=== PATIENT | female | born 1960 | race Caucasian/White ===

== ENCOUNTER → 2017-04-17 | Outpatient (CLI) | payer OTHER | LOC: FIMAGING 09:38 | PROVIDERS: ATTEND Obstetrics & Gynecology | DX: N83.02 Follicular cyst of left ovary (principal); N83.01 Follicular cyst of right ovary; N95.0 Postmenopausal bleeding; Z79.890 Hormone replacement therapy ==

== ENCOUNTER 2017-05-10 05:58 | Day surgery (SDC) | payer OTHER ==
[2017-05-10] MEDS ORDERED: LR 1,000 ML IV ONE (06:13)
[2017-05-10] MEDS ORDERED: SILVER NITRATE APPLICATOR 1 APPL TP ONE (06:49)
--- NOTE | 2017-05-10 06:55 | PDANEPAE ---
ANE History of Present Illness 56 yo F w abnormal postmenopausal bleeding, here for hysteroscopy ANE Past Medical History - Cardiovascular History Hx Hypertension: No Hx Arrhythmias: No Hx Chest Pain: No Hx Coronary Artery / Peripheral Vascular Disease: No Hx CHF / Valvular Disease: No Hx Palpitations: No - Pulmonary History Hx COPD: No Hx Asthma/Reactive Airway Disease: No Hx Recent Upper Respiratory Infection: No Hx Oxygen in Use at Home: No - Neurologic History Hx Cerebrovascular Accident: No Hx Seizures: No Hx Dementia: No - Endocrine History Hx Diabetes: No - Renal History Hx Renal Disorders: No - Liver History Hx Hepatic Disorders: No - Neurological & Psychiatric Hx Hx Neurological and Psychiatric Disorders: No - Cancer History Hx Cancer: No - Congenital Disorder History Hx Congenital Disorders: No - GI History Hx Gastrointestinal Disorders: No - Chronic Pain History Chronic Pain: No ANE Review of Systems - Exercise capacity Exercise capacity: >=4 METS METS (RN): 5 METS - Systems Genitourinary: Reports: other (dysmenorrhea) ANE Patient History - Allergies Allergies/Adverse Reactions: Penicillins Allergy (Mild, Verified 05/10/17 06:39) - Home Medications Home medications: home medication list seen and reviewed Home Medications: Aspirin 04/30/17 [Last Taken 05/03/17] Estradiol 04/30/17 [Last Taken 05/09/17 06:00] Herbals/Supplements -Info Only 04/30/17 [Last Taken 05/03/17] Zyrtec 04/30/17 [Last Taken 05/03/17] traZODONE 50MG (*) 05/10/17 [Last Taken 05/09/17 20:00] - NPO status NPO Since - Liquids (Date): 05/09/17 NPO Since - Liquids (Time): 19:00 NPO Since - Solids (Date): 05/09/17 NPO Since - Solids (Time): 19:00 - Anes Hx Anes Hx: slow to awaken from anesthesia - Smoking Hx Smoking Status: Never smoked - Alcohol Use Alcohol Use: None - Family Anes Hx Family Anes Hx: none Family Hx Anesthesia Complications: NEG ANE Labs/Vital Signs - Vital Signs Blood Pressure: 121/72 Heart Rate: 89 Respiratory Rate: 15 O2 Sat (%): 99 Height: 172.72 cm Weight: 58.967 kg ANE Physical Exam - Airway Neck exam: FROM Mallampati Score: Class 2 Mouth exam: normal dental/mouth exam - Pulmonary Pulmonary: no respiratory distress, clear to auscultation - Cardiovascular Cardiovascular: regular rate and rhythym, no murmur, rub, or gallop - ASA Status ASA Status: II ANE Anesthesia Plan Anesthesia Plan: GA w LMA
[2017-05-10] MEDS ORDERED: MIDAZOLAM 2 MG/2 ML VIAL IVP ONE (06:58)
--- NOTE | 2017-05-10 07:04 | PDHPUP ---
History & Physical Update H&P update statement: This history and physical update is based on an assessment of the patient which was completed after admission or registration (within 24 hours), but prior to the surgery/procedure. H&P update: H&P reviewed & patient examined, no change in patient's condition since H&P completed
[2017-05-10] MEDS ORDERED: PROPOFOL 200 MG/20 ML VIAL ONE ×2 (07:20)
[2017-05-10] MEDS ORDERED: fentaNYL 100 MCG/2 ML INJ ONE (07:20)
[2017-05-10] MEDS ORDERED: LIDOCAINE 2% 5 ML SDV ONE (07:24)
[2017-05-10] MEDS ORDERED: ACETAMINOPHEN 500 MG TAB PO PRN (07:59)
[2017-05-10] MEDS ORDERED: OXYCODONE/APAP 5/325 TAB PO PRN (07:59)
[2017-05-10] MEDS ORDERED: PROMETHAZINE HCL 25 MG/ML INJ IVP PRN (07:59)
[2017-05-10] MEDS ORDERED: ONDANSETRON 4 MG/2 ML VIAL IVP PRN (07:59)
[2017-05-10] MEDS ORDERED: NALOXONE HCL 0.4 MG/ML INJ IVP PRN (07:59)
[2017-05-10] MEDS ORDERED: fentaNYL 100 MCG/2 ML INJ IVP PRN (07:59)
[2017-05-10] MEDS ORDERED: DEXAMETHASONE 4 MG/ML VIAL ONE (08:02)
[2017-05-10] MEDS ORDERED: ONDANSETRON 4 MG/2 ML VIAL ONE (08:02)
[2017-05-10] MEDS ORDERED: HYDROCODONE/APAP 5/325 TAB PO PRN (08:15)
[2017-05-10] MEDS ORDERED: ONDANSETRON DISINTEGRATING 4 MG TAB PO PRN (08:15)
[2017-05-10 10:55] VITALS: BP 118/59; PULSE 73; RESP 16; TEMP 101.3; O2SAT 97
--- NOTE | 2017-05-10 20:17 | GOP ---
[f rep st] OPERATIVE REPORT DATE OF OPERATION: 05/10/2017 SURGEON: Blanca Javier MD DRUG ROOM OPERATOR: None. ANESTHESIA: General. PREOPERATIVE DIAGNOSIS: Postmenopausal bleeding and endometrial thickening. POSTOPERATIVE DIAGNOSIS: Postmenopausal bleeding and endometrial thickening. PROCEDURE PERFORMED: Dilation and curettage, hysteroscopy with morcellation of endometrial polyp. FINDINGS: Intraoperative findings revealed an endometrial polyp arising from the posterior uterine wall in the midline. SPECIMENS: Endometrial curettings and uterine polyp. ESTIMATED BLOOD LOSS: 5 cc. INDICATIONS: The patient is a 56-year-old menopausal female with postmenopausal bleeding and thicke janice endometrial stripe. The patient was offered an endometrial biopsy versus a dilation and curetta ge and hysteroscopy in the operating room, and she desired to proceed with evaluation under anesthes ia in the operating room. DESCRIPTION OF PROCEDURE: The patient was taken to the operating room, where general anesthesia was found be adequate. Patient was prepared and draped in the normal sterile fashion in the dorsal lit hotomy position. A 1-sided speculum was placed in the patient's vagina and the anterior lip of the cervix was grasped with a single-tooth tenaculum. The cervix was then gently dilated up to 6 mm usi ng Hegar dilators. A 0-degree, 5 mm hysteroscope was then placed into the cervix and advanced into the uterine cavity without any immediate complications. The uterine cavity was visualized clearly a nd a single polyp was noted on the posterior wall. The 2.9 morcellator was placed through the hyste roscope and was used to remove the polyp under direct visualization. The endometrial lining was the n sampled with the morcellator. The hysteroscope was then removed from the uterine cavity. Sharp c urettage was then performed and the specimen was sent with the specimen obtained with morcellator. The tenaculum was removed from the cervix and hemostasis obtained with silver nitrate. The speculum was removed from the vagina and the patient was awoken from anesthesia without any complications. All sponge, lap, and needle counts correct x2. Patient was transferred to the PACU in stable and go od condition. COMPLICATIONS: None. DRAINS: None. IV FLUIDS: 400 cc. URINE OUTPUT: None. /[id number]/MODL
== END 2017-05-10 10:52 | disposition home or self-care (01) ==
LOC: FSGY 05:58
PROVIDERS: ATTEND Obstetrics & Gynecology
PROC: 0UDB8ZX Extraction of Endometrium, Via Natural or Artificial Opening Endoscopic, Diagnostic (ICD-10-PCS; principal; 2017-05-10 07:30)
DX: N84.0 Polyp of corpus uteri (principal); N95.0 Postmenopausal bleeding; R93.8 Abnormal findings on diagnostic imaging of other specified body structures
CPT/HCPCS: 58558; C1782; J1100; J2250; J2405; J2704; J3010

== ENCOUNTER → 2017-09-27 | Outpatient (CLI) | payer OTHER | LOC: FIMAGING 14:18 | PROVIDERS: ATTEND Nurse Practitioner Adult Health | DX: Z12.31 Encounter for screening mammogram for malignant neoplasm of breast (principal) | CPT/HCPCS: G0202 ==

== ENCOUNTER → 2017-10-16 | Outpatient (CLI) | payer OTHER | LOC: FIMAGING 14:13 | PROVIDERS: ATTEND Nurse Practitioner Adult Health | DX: R92.8 Other abnormal and inconclusive findings on diagnostic imaging of breast (principal) | CPT/HCPCS: G0206 ==

== ENCOUNTER → 2018-05-26 | Outpatient (CLI) | payer OTHER | LOC: FIMAGING 14:42 | PROVIDERS: ATTEND Obstetrics & Gynecology | DX: N95.0 Postmenopausal bleeding (principal); N85.8 Other specified noninflammatory disorders of uterus; N94.89 Other specified conditions associated with female genital organs and menstrual cycle; Z78.0 Asymptomatic menopausal state; Z79.01 Long term (current) use of anticoagulants ==

== ENCOUNTER → 2018-09-29 | Outpatient (CLI) | payer OTHER | LOC: FIMAGING 15:32 | DX: Z12.31 Encounter for screening mammogram for malignant neoplasm of breast (principal) ==